=== PATIENT | female | born 1945 | race Two or more races ===

== ENCOUNTER 2017-10-10 07:28 | Inpatient (IN) | payer MEDICARE, OTHER ==
[~2017-10-10] VITALS: Ht 157.5 cm; Wt 55.8 kg
[2017-10-10] VITALS (8 sets, daily range): BP systolic 119–136; BP diastolic 52–79
[2017-10-10] MEDS ORDERED: CEFAZOLIN SODIUM/DEXTROSE,ISO 50 ML IV ONE (08:15)
[2017-10-10] MEDS ORDERED: ACETAMINOPHEN 325 MG TABLET ONE (08:15)
[2017-10-10] MEDS ORDERED: CELECOXIB 100 MG CAPSULE ONE (08:15)
[2017-10-10] MEDS ORDERED: oxyCODONE HCL SR 10MG TAB.SR.12H PO ONE (08:15)
[2017-10-10] MEDS ORDERED: BACITRACIN 50000 UNITS/VIAL ONE (11:25)
[2017-10-10] MEDS ORDERED: TRANEXAMIC ACID 3,000 MG in SODIUM CHLORIDE IRRIG SOLUTION 70 ML IR ONE (11:30)
[2017-10-10] MEDS ORDERED: FENTANYL PF 100MCG/2ML AMPUL ONE (11:31)
[2017-10-10] MEDS ORDERED: ROCURONIUM BROMIDE 50 MG/5 ML ONE (11:31)
[2017-10-10] MEDS ORDERED: BUPIVACAINE 0.5 % PF 150 MG/30 ML VIAL ONE (11:31)
[2017-10-10] MEDS ORDERED: SENNOSIDES 8.6 MG TABLET PO PRN ×2 (15:00)
[2017-10-10] MEDS ORDERED: HYDROCODONE/APAP 5/325MG 1 EACH TABLET PO PRN ×2 (15:00)
[2017-10-10] MEDS ORDERED: BISACODYL SUPP (10 MG) 10 MG/SUPP.RECT SUPP.RECT RC PRN (15:00)
[2017-10-10] MEDS ORDERED: ZOLPIDEM TARTRATE 5 MG TABLET PO PRN ×2 (15:00)
[2017-10-10] MEDS ORDERED: ACETAMINOPHEN 325 MG TABLET PO PRN ×2 (15:00→17:00)
[2017-10-10] MEDS ORDERED: DOCUSATE SODIUM 100 MG CAPSULE PO PRN (15:00)
[2017-10-10] MEDS ORDERED: HYDROMORPHONE INJ 2 MG/ML DISP.SYRIN IV PRN ×2 (15:00→17:00)
[2017-10-10] MEDS ORDERED: DOCUSATE SODIUM 250 MG CAPSULE PO PRN (15:00)
[2017-10-10] MEDS: IV LR 1000 ML 1,000 ML IV PRN (15:54)
[2017-10-10] MEDS ORDERED: MONT10TA22 PO (16:21)
[2017-10-10] MEDS ORDERED: LEVO75TA7 PO (16:21)
[2017-10-10] MEDS ORDERED: METF500T6 PO (16:21)
[2017-10-10] MEDS ORDERED: PRED5TAB48 PO (16:21)
[2017-10-10] MEDS ORDERED: MAGN400T6 PO (16:21)
[2017-10-10] MEDS ORDERED: PREG50CA PO (16:21)
[2017-10-10] MEDS ORDERED: ESTR0.623 PO (16:21)
[2017-10-10] MEDS ORDERED: FLUT16SP BNOSTRILS (16:21)
[2017-10-10] MEDS ORDERED: OXYC-128 PO (16:21)
[2017-10-10] MEDS ORDERED: ATOR20TA PO (16:21)
[2017-10-10] MEDS ORDERED: BREX2TAB PO (16:21)
[2017-10-10] MEDS ORDERED: ROPI0.5T PO (16:21)
[2017-10-10] MEDS ORDERED: GLIM2TAB2 PO (16:21)
[2017-10-10] MEDS ORDERED: BUPR300T54 PO (16:21)
[2017-10-10] MEDS ORDERED: LOSA25TA13 PO (16:21)
[2017-10-10] MEDS ORDERED: MECL-102 PO (16:21)
[2017-10-10] MEDS ORDERED: DICL100G16 TP (16:21)
[2017-10-10] MEDS ORDERED: METO25TA6 PO (16:27)
[2017-10-10] MEDS ORDERED: DEXL60CA3 PO (16:27)
[2017-10-10] MEDS ORDERED: EMPA10TA PO (16:27)
[2017-10-10] MEDS ORDERED: LIOT5TAB3 PO (16:27)
[2017-10-10] MEDS ORDERED: CHOL200026 PO (16:27)
[2017-10-10] MEDS ORDERED: MYRBETRIQ 50 MG PO (16:27)
[2017-10-10] MEDS ORDERED: ONDANSETRON HCL/PF 4 MG/2 ML VIAL IVP PRN (17:00)
[2017-10-10] MEDS ORDERED: MAG HYDROX/AL HYDROX/SIMETH 30 ML UDC PO PRN (17:00)
[2017-10-10] MEDS ORDERED: HYDROCODONE/APAP 10/325MG 1 EA TABLET PO PRN (17:00)
[2017-10-10] MEDS ORDERED: MAGNESIUM HYDROXIDE 30 ML UDC PO PRN (17:00)
[2017-10-10] MEDS ORDERED: DEXTROSE 50%-WATER 50 ML DISP.SYRIN IV PRN (17:00)
[2017-10-10] MEDS ORDERED: *INSULIN REGULAR(HUMULIN R)HUM 100 UNIT/ML VIAL SQ PRN (17:00)
[2017-10-10] MEDS: BLOOD SUGAR DIAGNOSTIC 1 EACH STRIP VI SCH ×2 (17:26→22:00)
[2017-10-10] MEDS: DOCUSATE SODIUM 100 MG CAPSULE PO SCH (17:28)
[2017-10-10] MEDS ORDERED: ESTR42.5 VG (17:35)
[2017-10-10] MEDS: INSULIN REGULAR, HUMAN 100 UNIT/ML 3 ML VIAL SQ PRN (17:51)
[2017-10-10] MEDS ORDERED: MENTHOL/CETYLPYRD (CEPACOL) 1 LOZ LOZENGE PO PRN (19:30)
[2017-10-10] MEDS ORDERED: HYDROMORPHONE INJ 0.5 MG/0.5 ML SYRINGE IM/IV PRN (19:30)
[2017-10-10] MEDS ORDERED: CLONIDINE HCL 0.1 MG TABLET PO PRN (19:30)
[2017-10-10] MEDS ORDERED: diphenhydrAMINE HCL 25 MG CAPSULE PO PRN (19:30)
[2017-10-10] MEDS ORDERED: HYDROMORPHONE INJ 0.5 MG/0.5 ML SYRINGE IM/IV ONE (19:46)
[2017-10-10] MEDS: PREGABALIN 25 MG CAPSULE PO SCH (20:25)
[2017-10-10] MEDS ORDERED: HYDROMORPHONE INJ 2 MG/ML DISP.SYRIN IM/IV ONE (20:30)
[2017-10-10] MEDS: CEFAZOLIN 1 GM in IV D5W 50 ML IV SCH (21:32)
[2017-10-11] MEDS: HYDROMORPHONE INJ 2 MG/ML DISP.SYRIN IM/IV PRN ×3 (04:30→14:24)
[2017-10-11] MEDS: CEFAZOLIN 1 GM in IV D5W 50 ML IV SCH (04:31)
[2017-10-11] MEDS: IV LR 1000 ML 1,000 ML IV PRN (04:32)
[2017-10-11 06:40] LABS: CHOLESTEROL 136 mg/dL (<200); HDL CHOLESTEROL 54 mg/dL (40-60); LDL 69 mg/dL (0-99); TRIGLYCERIDES 83 mg/dL (30-150)
[2017-10-11] MEDS: BLOOD SUGAR DIAGNOSTIC 1 EACH STRIP VI SCH ×2 (06:42→11:39)
[2017-10-11 06:58] LABS: CALCIUM, SERUM 8.5 mg/dL (8.5-10.1); CARBON DIOXIDE 27 mmol/L (21-32); CHLORIDE 105 mmol/L (98-107); CREATININE 0.8 mg/dL (0.6-1.3); GLUCOSE 125 mg/dL (74-106); MAGNESIUM 2.1 mg/dL (1.8-2.4); PHOSPHORUS 3.9 mg/dL (2.5-4.9); POTASSIUM 3.7 mmol/L (3.5-5.1); SODIUM SERUM 140 mmol/L (136-145); UREA NITROGEN, BLOOD 20 mg/dL (7-18)
[2017-10-11 07:14] LABS: BASOPHILS % (AUTO) 0.1 % (0.0-2.0); EOSINOPHILS % (AUTO) 0.3 % (0.0-6.0); HEMATOCRIT 37 % (33-45); HEMOGLOBIN 9.1 g/dL (11.5-14.8); LYMPHOCYTES # (AUTO) 2.1 /CMM (0.8-4.8); LYMPHOCYTES % (AUTO) 24.1 % (20.0-44.0); MEAN CORPUSCULAR HEMOGLOBIN 18 PG (26.0-33.0); MEAN CORPUSCULAR HGB CONC 25 g/dl (31.0-36.0); MEAN CORPUSCULAR VOLUME 73 fL (82-100); MONOCYTES # (AUTO) 0.7 /CMM (0.1-1.30); MONOCYTES % (AUTO) 8.6 % (2.0-12.0); NEUTROPHILS # (AUTO) 5.8 /CMM (1.8-8.9); NEUTROPHILS % (AUTO) 66.9 % (43.0-81.0); PLATELET COUNT (AUTO) 393 /CMM (150-450); RDW COEFFICIENT OF VARIATION 19.5 (11.5-15.0); WHITE BLOOD COUNT (AUTO) 8.6 K/uL (4.3-11.0)
[2017-10-11] MEDS: oxyCODONE IR immediate release 5 MG PO PRN ×3 (07:22→15:54)
[2017-10-11] MEDS ORDERED: PANTOPRAZOLE 40 MG TABLET.DR PO SCH (07:30)
[2017-10-11 08:00] VITALS: BP 154/80
[2017-10-11] MEDS: DOCUSATE SODIUM 100 MG CAPSULE PO SCH ×2 (08:11→16:45)
[2017-10-11] MEDS: PREGABALIN 25 MG CAPSULE PO SCH ×3 (08:11→16:44)
[2017-10-11] MEDS ORDERED: BUPROPION XL 150 MG TAB.ER.24 PO SCH (09:00)
[2017-10-11] MEDS: INSULIN REGULAR, HUMAN 100 UNIT/ML 3 ML VIAL SQ PRN (12:09)
[2017-10-11 16:00] VITALS: BP 138/66
== END 2017-10-11 17:30 | disposition home health service (06) | DRG 483 ==
LOC: DS 07:28 → MED 14:13
PROVIDERS: ADMIT Specialist; ATTEND Specialist
PROC: 0RRK00Z Replacement of Left Shoulder Joint with Reverse Ball and Socket Synthetic Substitute, Open Approach (ICD-10-PCS; principal; 2017-10-10 12:18)
DX: M19.012 Primary osteoarthritis, left shoulder (principal); E27.40 Unspecified adrenocortical insufficiency; E78.5 Hyperlipidemia, unspecified; I10 Essential (primary) hypertension; E11.42 Type 2 diabetes mellitus with diabetic polyneuropathy; E03.9 Hypothyroidism, unspecified; F32.9 Major depressive disorder, single episode, unspecified; M35.00 Sjogren syndrome, unspecified; G89.29 Other chronic pain; M54.5 Low back pain; K59.00 Constipation, unspecified; K29.70 Gastritis, unspecified, without bleeding; D64.9 Anemia, unspecified
CPT/HCPCS: 36415; 80048-TC; 80061-TC; 82962-TC; 83735-TC; 84100-TC; 85025-TC; 86850-TC; 86921-TC; 87081-TC; 88305-TC; 88311-TC; A4217; A6253; J0690; J1100; J1170; J1815; J2405; J2704; J2710; J3010; J3490; J7060; J7120; Q0163